=== PATIENT | male | born 1960 | race Caucasian/White ===

== ENCOUNTER → 2018-05-10 | Day surgery (SDC) | payer OTHER ==
[~2018-05-10] MED LIST: BUPIVACAINE 0.25%/EPI 30ML SDV INJ ONE; DEXAMETHASONE SOD PHOS INJ 4 MG/ML VIAL ONE; FENTANYL CITRATE/PF 100MCG/2 ML INJ ONE; KETOROLAC TROMETHAMINE 30 MG/ML VIAL ONE; LIDOCAINE HCL 2% LOCAL INJ 5 ML SDV VIAL INJ ONE; MIDAZOLAM HCL 2 MG/2 ML VIAL ONE; ONDANSETRON HCL INJ 2 MG/ML VIAL ONE; PROPOFOL IV EMULSION 10 MG/ML 20 ML VIAL ONE; SEVOFLURANE INHAL SOLN 250 ML PEN BTL ONE
--- NOTE | 2018-05-10 13:16 | Diagnostic Imaging Report ---
PROCEDURE: Frontal and lateral views of the chest. COMPARISON: None. INDICATIONS: PRE OPERATIVE CHEST XRAY FOR HERNIA SURGERY FINDINGS: Lines/tubes: None. Lungs: The lungs are well inflated and clear. There is no evidence of pneumonia or pulmonary edema. Biapical pleural/parenchymal scarring Pleura: There is no pleural effusion or pneumothorax. Heart and mediastinum: The heart and the mediastinum are normal. Bones: No acute bony abnormality. The bones are demineralized. There is an age-indeterminate compression deformity at a superior thoracic vertebral body with about 50-75% height loss. IMPRESSION: No evidence of edema or infection. Dictated by: Aniceto Mcleod M.D. on 05/10/2018 at 13:21 Electronically approved by: Aniceto Mcleod M.D. on 05/10/2018 at 13:21
--- NOTE | 2018-05-10 17:35 | Operative Report ---
DATE OF PROCEDURE: May 10, 2018 PREOPERATIVE DIAGNOSIS: Umbilical hernia. POSTOPERATIVE DIAGNOSIS: Umbilical hernia. OPERATION PERFORMED: Repair of umbilical hernia with Ventralex patch. SHERIFFS DETECTIVE: JEWELS Cormier ANESTHESIA: General. COMPLICATIONS: None. ESTIMATED BLOOD LOSS: Minimal. DESCRIPTION OF PROCEDURE: With the patient lying in bed in the supine position under good general anesthesia, the abdomen was prepped with Betadine solution and draped in the usual manner. A semilunar subumbilical incision was made, was carried down through the subcutaneous tissue down to the fascia. The hernia sac was then encircled. The umbilicus was from the hernia sac and all of the contents of the hernia sac were reduced back to the intra-abdominal cavity. Examination at this point revealed that there was some weakness around the hernia ring and we decided that a primary repair would not be sufficient. A medium-sized Ventralex patch was then placed to the hernia defect intra-abdominally and the defect was then closed transversely using interrupted sutures of 0 Ethibond, anchoring the mesh with closure. The whole area was then thoroughly irrigated. Perfect hemostasis was ascertained. All layers were infiltrated on the way out with solution of 0.25% Marcaine. Umbilicus was then tacked back down to the midline with 3-0 Vicryl. The subcutaneous tissue was approximated with 3-0 Vicryl and the skin was closed with interrupted vertical mattress sutures of 3-0 silk. A dressing was applied. The sponge, lap, and needle count was correct. Patient tolerated the procedure well and returned to the recovery room in stable condition. Job#: [id number]
== END | disposition home or self-care (01) ==
LOC: OR 11:30
PROVIDERS: ATTEND Surgery
DX: K42.9 Umbilical hernia without obstruction or gangrene (principal)
CPT/HCPCS: 49585; 71046; C1781; J1100; J1885; J2001; J2250; J2405